=== PATIENT | male | born 1985 | race Caucasian/White ===

== ENCOUNTER 2016-12-17 00:54 | Emergency (ER) | payer BC ==
[2016-12-17] MEDS ORDERED: NO HOME MEDICATION XX (01:07)
[2016-12-17] MEDS ORDERED: SILVADENE20 G1 TP (01:47)
[2016-12-17] MEDS ORDERED: HYDROCODON-ACE1 EA16 PO (01:47)
== END 2016-12-17 02:12 ==
LOC: EDMED 00:54
DX: T23.242A Burn of second degree of multiple left fingers (nail), including thumb, initial encounter (principal); T31.0 Burns involving less than 10% of body surface; X02.0XXA Exposure to flames in controlled fire in building or structure, initial encounter; Y92.89 Other specified places as the place of occurrence of the external cause